=== PATIENT | male | born 1940 | race African-American/Black ===

== ENCOUNTER 2016-04-26 18:09 | Emergency (ER) | payer OTHER ==
[2016-04-26 18:53] LABS: MANUAL DIFF NEEDED? NO
[2016-04-26 18:55] LABS: BASO% 0.8 % (0.0-0.8); EOS# 0.08 X1000 (0.0-0.7); EOS% 1.5 % (0.0-10.0); LYMPH# 1.33 X1000 (1.2-3.4); LYMPH% 25.3 % (20.5-51.1); MCH 33.2 PG (27-31); MCHC 34.1 g/dL (33-37); MCV 97.2 FL (81-99); MONO# 0.28 X1000 (0.11-0.59); MONO% 5.3 % (1.7-9.3); MPV 10.5 FL (7.4-10.4); NEUT% 67.1 % (42.2-75.2); PLT 195 X1000 (130-400); RBC 4.22 XMIL (4.7-6.1)
[2016-04-26 19:14] LABS: AGAP 13; ALBUMIN 4.1 g/dL (3.5-5.0); ALKALINE PHOSPHATASE 92 U/L (32-122); BUN 14 mg/dL (8-22); CALCIUM 9.5 mg/dL (8.8-10.2); CHLORIDE 103 mmol/L (98-107); COSMO 283; GOT 13 U/L (10-34); GPT 11 U/L (10-44); POTASSIUM 4.1 mmol/L (3.5-5.1); SODIUM 140 mmol/L (136-145); TCO2 24 mmol/L (25-35); TOTAL BILIRUBIN 0.51 mg/dL (0.20-1.00)
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
[2016-04-26] MEDS ORDERED: MOBIC PO ONE (20:04)
[2016-04-26 20:26] VITALS: BP 135/79
--- NOTE | 2016-04-27 05:50 | EKG Report ---
Test Performed on : 04/26/2016 6:39:55 PM Test Reason : PE's Blood Pressure : / mmHG Vent. Rate : 071 BPM Atrial Rate : 071 BPM P-R Int : 190 ms QRS Dur : 082 ms QT Int : 372 ms P-R-T Axes : 048 047 026 degrees QTc Int : 404 ms Normal sinus rhythm. Possible Left atrial enlargement Borderline ECG When compared with ECG of 12-FEB-2016 10:57, Nonspecific T wave abnormality no longer evident in Anterior leads Unconfirmed Result
--- NOTE | 2016-04-27 06:41 | Diag Imaging Result Document ---
PROCEDURE NAME: CHEST-2 VIEWS - 04/26/2016 CHEST TWO VIEWS: COMPARISON: 02/12/2016. FINDINGS: The lungs are well expanded. No contusions or pneumothoraces. The mediastinum is not widened. No pleural effusions. There is a large hiatal hernia. IMPRESSION: No injury identified.
--- NOTE | 2016-04-27 06:49 | Diag Imaging Result Document ---
PROCEDURE NAME: CERVICAL SPINE W/O CONTRAST - 04/26/2016 CERVICAL SPINE WITHOUT CONTRAST: FINDINGS: There is good alignment to the cervical spine. Degenerative changes are found throughout the cervical spine. No precervical soft tissue swelling. No subluxation. No fracture. IMPRESSION: 1. No acute bony injury. 2. Degenerative changes throughout the cervical spine. A preliminary report was given at 7:53 p.m.
== END 2016-04-26 20:25 | disposition home or self-care (01) ==
LOC: ED 18:09
DX: S20.219A Contusion of unspecified front wall of thorax, initial encounter (principal); S16.1XXA Strain of muscle, fascia and tendon at neck level, initial encounter; R07.9 Chest pain, unspecified; M54.2 Cervicalgia; R51 Headache; M25.512 Pain in left shoulder; R94.31 Abnormal electrocardiogram [ECG] [EKG]; K21.9 Gastro-esophageal reflux disease without esophagitis; Z85.46 Personal history of malignant neoplasm of prostate; V59.40XA Driver of pick-up truck or van injured in collision with unspecified motor vehicles in traffic accident, initial encounter; Z79.899 Other long term (current) drug therapy
CPT/HCPCS: 71020; 72125; 80053; 85025; 93005